=== PATIENT | female | born 1960 | race American Indian/Alaskan Native ===

== ENCOUNTER 2019-06-16 12:00 | Observation (INO) | payer BC ==
--- NOTE | 2019-09-04 14:36 | Anesthesia Consultation ---
Anesthesia Consult and Med Hx Date of service: 09/08/19 - Airway Anesthetic Teeth Evaluation: Good, Crowns ROM Head & Neck: Adequate Mental/Hyoid Distance: Adequate Mallampati Class: Class II Intubation Access Assessment: Good - Pre-Operative Health Status ASA Pre-Surgery Classification: ASA2 Proposed Anesthetic Plan: General Nerve Block: TAP - Cardiovascular System Hx Hypertension: Yes (since 2017. Pt states she can climb two flights of stairs) - Central Nervous System Hx Psychiatric Problems: Yes (Anxiety) - Other Systems Hx Cancer: No
[2019-09-04 15:05] LABS: Hematocrit 44.8 % (30.3-42.9); Hemoglobin 14.8 gm/dl (10.1-14.3); Mean Corpuscular HGB Conc 33 % (30-34); Mean Corpuscular Volume 91 fl (79-97); Platelet Count 256 K/mm3 (140-440); Red Cell Distribution Width 13.5 % (13.2-15.2)
[2019-09-04 18:57] LABS: Basophils % (Manual) 0 % (0.0-1.8); Total Cells Counted 100
[2019-09-04 18:58] LABS: Platelet Estimate Consistent w Auto; RBC Morphology Normal
--- NOTE | 2019-09-08 11:04 | Anesthesia Day of Surgery ---
Anesthesia Day of Surgery - Day of Surgery Patient Examined: Yes Patient H&P Reviewed: Yes Patient is NPO: Yes
[2019-09-08] MEDS ORDERED: BUPIVACAINE-EPINEPHRINE/PF 0.5%-1:200,000 (30 ML) VIAL INFILTRATI ONE (11:07)
[2019-09-08] MEDS ORDERED: LIDOCAINE (1%) 10 MG/1 ML VIAL 20 ML MDV ONE (11:07)
[2019-09-08] MEDS ORDERED: fentaNYL 100 MCG/2 ML INJ IV ONE (11:14)
[2019-09-08] MEDS ORDERED: CELECOXIB 200 MG CAP ONE (11:31)
[2019-09-08] MEDS ORDERED: GABAPENTIN 300 MG CAP ONE (11:31)
--- NOTE | 2019-09-08 11:52 | History and Physical Report ---
History of Present Illness Date of examination: 09/08/19 Date of admission: 09/08/19 10:48 Chief complaint: Symptomatic uterine fibroids History of present illness: Pt is a 59yo BF LMP 7 years ago presents for surgical evaluation and treatment of uterine fibroids. She complained of pelvic pain, and pelvic u/s showed an enlarged uterus 14 x 10 x 8cm with 5 large fibroids (largest 6 x 5cm). She is now scheduled for a Robotic Assisted Total Hysterectomy with Bilateral SalpingoOophorectomy. Past History Past Medical History: hypertension Past Surgical History: breast surgery, section (x2), myomectomy, other (BTL; Detached retina repair; Tympanoplasty) LAUNDRY CLERK History: fibroids Social history: no significant social history, single Medications and Allergies Allergies Allergy/AdvReac Type Severity Reaction Status Date / Time adhesive tape AdvReac Rash Verified 09/08/19 11:10 tape AdvReac Skin Uncoded 09/08/19 11:09 irritation Home Medications Medication Instructions Recorded Confirmed Last Taken Type Metoprolol [Lopressor TAB] 50 mg PO DAILY 08/31/19 09/08/19 09/08/19 07:00 History PARoxetine [Paxil] 10 mg PO DAILY 08/31/19 09/08/19 09/07/19 09:00 History Active Meds: Active Medications Celecoxib (Celebrex) 200 mg PO PREOP NR Stop: 09/08/19 23:59 Gabapentin (Gabapentin) 300 mg PO PREOP NR Stop: 09/08/19 23:59 Lactated Ringer's (Lactated Ringers) 1,000 mls @ 75 mls/hr IV DIRECT JESSICA Midazolam HCl (Versed) 2 mg IV PREOP NR Stop: 09/08/19 23:59 Review of Systems All systems: negative - Vital Signs Vital signs: Vital Signs Temp Pulse Resp BP Pulse Ox 97.3 F L 66 18 149/67 99 09/04/19 14:00 09/04/19 14:00 09/04/19 14:00 09/04/19 14:00 09/04/19 14:00 Temp Pulse Resp BP Pulse Ox 98.1 F 6 L 6 L 133/78 97 09/08/19 11:00 09/08/19 11:00 09/08/19 11:00 09/08/19 11:00 09/08/19 11:00 - Physical Exam Breasts: Positive: deferred Cardiovascular: Regular rate Lungs: Positive: Clear to auscultation Abdomen: Positive: normal appearance Genitourinary (Female): Positive: normal external genitalia Vagina: Positive: normal moisture Uterus: Positive: enlarged Extremities: Positive: normal Results Result Diagrams: 09/04/19 14:10 All other labs normal. Ultrasound: report reviewed Assessment and Plan - Patient Problems (1) Uterine fibroid Onset Date: 09/08/19 Current Visit: Yes Status: Acute Qualifiers: Uterine leiomyoma location: intramural, submucous, and subserous Qualified Code(s): D25.1 - Intramural leiomyoma of uterus; D25.0 - Submucous leiomyoma of uterus; D25.2 - Subserosal leiomyoma of uterus Plan to address problem: A: Symptomatic uterine fibroids P: Admit for a Robotic Assisted Total Hysterectomy with Bilateral SalpingoOophorectomy
[2019-09-08] MEDS ORDERED: LACTATED RINGERS 1,000 ML IV SCH (12:00)
[2019-09-08] MEDS ORDERED: MIDAZOLAM 2 MG/2 ML INJ IV NR (12:00)
[2019-09-08] MEDS ORDERED: CELECOXIB 200 MG CAP PO NR (12:00)
[2019-09-08] MEDS ORDERED: ceFAZolin/Water 2 GM/20 ML 2 GM/20 ML SYRINGE IV NR (12:00)
[2019-09-08] MEDS ORDERED: GABAPENTIN 300 MG CAP PO NR (12:00)
[2019-09-08] MEDS ORDERED: HYDROmorphone 1 MG/1 ML INJ ONE (13:33)
[2019-09-08] MEDS ORDERED: PROPOFOL 200 MG/20 ML VIAL IV ONE (13:33)
[2019-09-08] MEDS ORDERED: LIDOCAINE MPF (2%) 20 MG/1 ML VIAL 5 ML ONE (13:33)
[2019-09-08] MEDS ORDERED: ROCURONIUM 50 MG/5 ML INJ IV ONE (13:34)
[2019-09-08] MEDS ORDERED: NEOMY 40 MG/POLYMYXIN B 200,000 UNITS/ML (GU) AMPULE IR ONE ×2 (13:35→14:47)
[2019-09-08] MEDS ORDERED: SODIUM CHLORIDE 0.9% IRR 1,500 ML BOTTLE IR ONE (14:47)
[2019-09-08] MEDS ORDERED: SODIUM CHLORIDE 0.9% IRRIG SOLN 2000 ML IR ONE (14:47)
--- NOTE | 2019-09-08 15:44 | Procedure Note ---
Date of procedure: 09/08/19 Pre-op diagnosis: Intraabdominal adhesions Post-op diagnosis: same Procedure: Robotic lysis of adhesions Findings: Intraoperative consult for lysis of adhesions. Patient already under anesthesia with robot docked. Dr. Melara noted dense adhesions from the colon to the uterus. Fenestrated bipolar in arm 2 and monopolar scissors in arm 1. The colon was very meticulously dissected from the uterus using a combination of blunt dissection and sharp dissection with the scissors. A small amount of uterine serosa was left attached to the colon to facilitate lysis of adhesions and prevent denuding the colonic serosa. Once all adhesions were dissected, the colon was examined and was intact. No injury was seen. There was hemostasis. Dr. Melara resumed his portion of the procedure at this time. The patient remained stable throughout. Anesthesia: GETA Surgeon: EMERITA LEVI Estimated blood loss: minimal Pathology: none Condition: stable Disposition: no change (Dr. Melara proceeded with his portion of the case)
[2019-09-08] MEDS ORDERED: PHENYLEPHRINE/NS 1,000 MCG/10 ML SYRINGE (OR USE) IV ONE (15:46)
[2019-09-08] MEDS ORDERED: LACTATED RINGERS 1,000 ML ONE ×2 (15:46→16:49)
[2019-09-08] MEDS ORDERED: GLYCOPYRROLATE 0.4 MG/2 ML INJ ONE (15:56)
[2019-09-08] MEDS ORDERED: NEOSTIGMINE 10MG/10 ML INJ MDV ONE (15:56)
--- NOTE | 2019-09-08 15:57 | Operative Report ---
Operative Report Operative Report: Pre-operative diagnosis: Symptomatic uterine fibroids Post-operative diagnosis: Same with extensive bowel/uterine adhesions Procedure : 1. Robotic-assisted total hysterectomy 2. Bilateral salpingoOophorectomy 3. Lysis of extensive bowel/uterine adhesions Surgeon: Beto Melara MD Intra-operative consultation : Dr Daivs (General Surgeon) Operations Leader: Holly Allison CSA Anesthesia: VENANCIO Block followed by general endotracheal intubation EBL: 100 mL's Findings: A 12-14 weeks size multimyomatous uterus with bowel densely adherent to the posterior uterine wall, and lower uterine segment adhesions. Fallopian tubes showing evidence of previous tubal ligation bilaterally and atrophic ovaries bilaterally. Procedure: After the patient's first correctly identified, she was prepped and draped in the usual sterile fashion and placed in the dorsolithotomy position. The bladder was first catheterized using a Johansen catheter and the speculum was placed in the vagina. The anterior lip of the cervix was grasped using a single- tooth tenaculum, and the medium Vesicare cup was placed. The tenaculum and speculum was then removed from the vagina and attention was then turned to the abdomen. The skin knife was used to make a small incision approximately 5 cm above the umbilicus through which a 12 mm trocar was placed under direct visualization. After adequate amount of abdominal insufflation, visualization of the pelvic organs found the uterus to be enlarged and bowel densely adherent to the posterior uterine wall, and the fallopian tubes showed evidence of previous tubal ligation bilaterally and ovaries were atrophic bilaterally. A right and left paramedian incision was made through which the 8 mm trochars were placed under direct visualization and a 5 mm trocar was placed in the right lower quadrant. The patient was then placed in steep Trendelenburg positioning and the robot was docked on the patient's left side. After all the robotic ports were connected and adequate functioning of the robotic arms were tested the surgeon then proceeded to the console to begin the hysterectomy. First the filmy adhesions were taken down using sharp and blunt dissections, but an intraoperative consultation was made to Dr Davis for removal of the dense adhesions from the bowel to the posterior uterine wall. After normal anatomy was restored, I continued the operation. The left infundibulopelvic ligament was grasped, cauterized and cut, the left fallopian tube also grasped, cauter ized and cut along the mesosalpinx, thus freeing the left ovary from the left pelvic sidewall. The same procedure was performed on the right. The right infundibulopelvic ligament was grasped, cauterized and cut, the right fallopian tube also grasped, cauterized and cut along the mesosalpinx, thus freeing the right ovary from the right pelvic sidewall. The bladder flap was taken down anteriorly and the uterine vessels were grasped, cauterized and cut bilaterally. The cardinal ligaments were sequentially grasped, cauterized and cut down to the level of the uterosacral ligaments. At this time an anterior colpotomy was performed over the Vcare cup, and the cervix was circumscribed beginning anteriorly and meeting posteriorly until the cervix was freed. The cervix, uterus, fallopian tubes and ovaries were then removed through the vagina and sent to pathology. The vaginal cuff was then closed using 2-0 Vloc suture in a running fashion. Irrigation was then performed and after good hemostasis was achieved. The procedure was considered complete. The Tisseel sealant was then sprayed across the vaginal cuff site, and after excellent hemostasis was assured, Interceed was placed across the vaginal cuff site. The abdominal pressure was reduced to 8 mmHg and excellent hemostasis was assured. All instruments were then removed from the abdominal cavity. Each incision was closed using 0 Vicryl suture in a [id number] configuration on the fascia followed by 4-0 Monocryl suture in a sub-cuticular fashion on the skin. Each incision was also infiltrated using 0.5% Marcaine solution. The vaginal pack was removed. The patient tolerated the procedure well and was transported to the recovery room in stable condition.
[2019-09-08] MEDS ORDERED: oxyCODONE /ACETAMINOPHEN 5-325MG TAB PO PRN (15:58)
[2019-09-08] MEDS ORDERED: MAGNESIUM HYDROXIDE (MOM) ORAL LIQD UDC PO PRN (15:58)
[2019-09-08] MEDS ORDERED: ACETAMINOPHEN 325 MG TAB PO PRN (15:58)
[2019-09-08] MEDS ORDERED: NALOXONE 0.4 MG/1 ML INJ IV PRN (15:58)
[2019-09-08] MEDS ORDERED: ONDANSETRON 4 MG/2 ML INJ IV PRN (15:58)
[2019-09-08] MEDS ORDERED: HYDROcodone/ACETAMINOPHEN 5-325 MG TAB PO PRN (15:58)
[2019-09-08] MEDS ORDERED: KETOROLAC 30 MG/1 ML INJ ONE (15:59)
[2019-09-08] MEDS ORDERED: ONDANSETRON 4 MG/2 ML INJ ONE (15:59)
[2019-09-08] MEDS ORDERED: D5W/LACTATED RINGERS 1,000 ML IV SCH (17:00)
--- NOTE | 2019-09-08 18:19 | Post Anesthesia Evaluation ---
- Post Anesthesia Evaluation Patient Participated: Yes Airway Patent: Yes Stable Respiratory Function: Yes Nausea/Vomiting: No Temp > 96.8F: Yes Pain Manageable: Yes Adequeate Hydration: Yes Anesthesia Complications: No Block Receding Appropriately: Not Applicable Patient on Ventilator: No
[2019-09-08] MEDS ORDERED: DOCUSATE SODIUM 100 MG CAP PO SCH (22:00)
[2019-09-08] MEDS: ceFAZolin/NS 1 GM/50 ML 1 GM/50 ML BAG IV SCH (22:03)
[2019-09-08] MEDS: KETOROLAC 30 MG/1 ML INJ IV SCH (22:06)
[2019-09-09] MEDS: guaiFENesin DM 200/20 MG ORAL LIQD 10 ML PO PRN ×2 (00:15→06:05)
[2019-09-09] MEDS: KETOROLAC 30 MG/1 ML INJ IV SCH ×2 (04:02→10:03)
[2019-09-09 05:00] LABS: Hematocrit 37.5 % (30.3-42.9); Hemoglobin 12.8 gm/dl (10.1-14.3)
[2019-09-09] MEDS: ceFAZolin/NS 1 GM/50 ML 1 GM/50 ML BAG IV SCH (05:59)
--- NOTE | 2019-09-09 09:43 | Progress Note ---
Assessment and Plan - Patient Problems (1) Uterine fibroid Onset Date: 09/08/19 Current Visit: Yes Status: Resolved Qualifiers: Uterine leiomyoma location: intramural, submucous, and subserous Qualified Code(s): D25.1 - Intramural leiomyoma of uterus; D25.0 - Submucous leiomyoma of uterus; D25.2 - Subserosal leiomyoma of uterus (2) Status post robot-assisted surgical procedure Onset Date: 09/09/19 Current Visit: Yes Status: Resolved Plan to address problem: A: S/P RATH with BSO - POD #1 Doing well P: May go home today. Subjective - Subjective Date of service: 09/09/19 Principal diagnosis: s/p RATH - POD #1 Interval history: Pt is feeling well s/p a Robotic Assisted Total Hysterectomy with Bilateral SalpingoOophorectomy. She is tolerating a soft diet without nausea or vomiting, ambulating and voiding without difficulty. Patient reports: appetite normal, voiding normally, pain well controlled, flatus, ambulating normally, no dizzy ambulation, no nauseated Objective - Vital Signs Latest vital signs: Vital Signs Temp Pulse Resp BP BP Pulse Ox 09/09/19 09:24 98.9 F 99 H 20 93/47 90 09/09/19 05:34 98.5 F 99 H 20 103/54 81 L 09/08/19 23:31 98.5 F 108 H 20 103/61 100 09/08/19 19:51 98.5 F 90 20 106/56 92 09/08/19 19:00 97.5 F L 100 09/08/19 18:06 86 131/62 100 09/08/19 17:45 97.2 F L 76 17 148/60 97 09/08/19 17:30 72 14 143/58 97 09/08/19 17:15 72 14 141/59 97 09/08/19 17:00 69 14 148/55 97 09/08/19 16:45 70 14 130/58 97 09/08/19 16:30 78 14 159/78 86 09/08/19 16:25 77 14 135/65 96 09/08/19 16:20 96.9 F L 63 12 119/78 86 09/08/19 13:04 84 14 136/57 100 09/08/19 12:59 83 14 139/56 100 09/08/19 12:49 79 12 145/62 100 09/08/19 12:44 72 13 128/61 100 09/08/19 12:39 58 L 11 L 123/48 100 09/08/19 12:34 60 13 134/57 100 09/08/19 12:32 18 09/08/19 12:29 61 15 127/81 100 09/08/19 12:20 18 09/08/19 11:00 98.1 F 6 L 6 L 133/78 97 09/08/19 10:30 98.1 F 62 16 133/78 97 Intake and Output 09/08/19 09/09/19 09/09/19 22:59 06:59 14:59 Intake Total 650 120 Output Total 1360 800 Balance -710 -680 Intake: IV 650 ANCEF/NS 1 GM/50 ML 1 gm 50 In 50 ml @ 100 mls/hr IV Q8H [facility] Rx#:[id number] Oral 120 Output: Urine 1360 800 Indwelling Catheter 600 800 Uretheral (Johansen) 350 Other: Total, Intake Amount 120 Total, Output Amount 600 200 Voiding Method Indwelling Catheter - Exam Breasts: Present: deferred Cardiovascular: Present: Regular rate Abdomen: Present: normal appearance, soft Extremities: Present: normal Incision: Present: normal, dry, intact - Labs Labs: Laboratory Tests 09/04/19 09/08/19 09/09/19 14:10 10:50 04:39 WBC 5.0 RBC 4.90 Hgb 14.8 H 12.8 Hct 44.8 H 37.5 MCV 91 MCH 30 MCHC 33 RDW 13.5 Plt Count 256 Lymph % (Auto) Chef Instructor Add Manual Diff Complete Total Counted 100 Seg Neuts % (Manual) 36.0 L Band Neutrophils % 0 Lymphocytes % (Manual) 59.0 H Reactive Lymphs % (Man) 0 Monocytes % (Manual) 4.0 Eosinophils % (Manual) 1.0 Basophils % (Manual) 0 Metamyelocytes % 0 Myelocytes % 0 Promyelocytes % 0 Blast Cells % 0 Nucleated RBC % Not Reportable Seg Neutrophils # Man 1.8 Band Neutrophils # 0.0 Lymphocytes # (Manual) 3.0 Abs React Lymphs (Man) 0.0 Monocytes # (Manual) 0.2 Eosinophils # (Manual) 0.1 Basophils # (Manual) 0.0 Metamyelocytes # 0.0 Myelocytes # 0.0 Promyelocytes # 0.0 Blast Cells # 0.0 WBC Morphology Not Reportable Hypersegmented Neuts Not Reportable Hyposegmented Neuts Not Reportable Hypogranular Neuts Not Reportable Smudge Cells Not Reportable Toxic Granulation Not Reportable Toxic Vacuolation Not Reportable Dohle Bodies Not Reportable Pelger-Huet Anomaly Not Reportable Rosenda Rods Not Reportable Platelet Estimate Consistent w auto Clumped Platelets Not Reportable Plt Clumps, EDTA Not Reportable Large Platelets Not Reportable Giant Platelets Not Reportable Platelet Satelliting Not Reportable Plt Morphology Comment Not Reportable RBC Morphology Normal Dimorphic RBCs Not Reportable Polychromasia Not Reportable Hypochromasia Not Reportable Poikilocytosis Not Reportable Anisocytosis Not Reportable Microcytosis Not Reportable Macrocytosis Not Reportable Spherocytes Not Reportable Pappenheimer Bodies Not Reportable Sickle Cells Not Reportable Target Cells Not Reportable Tear Drop Cells Not Reportable Ovalocytes Not Reportable Helmet Cells Not Reportable Pop-[place] Bodies Not Reportable [place] Rings Not Reportable Ofe Cells Not Reportable Bite Cells Not Reportable Crenated Cell Not Reportable Elliptocytes Not Reportable Acanthocytes (Spur) Not Reportable Rouleaux Not Reportable Hemoglobin C Crystals Not Reportable Schistocytes Not Reportable Malaria parasites Not Reportable Henri Bodies Not Reportable Hem Pathologist Commnt No Blood Type O POSITIVE Antibody Screen Negative
--- NOTE | 2019-09-09 09:55 | Discharge Summary ---
Providers - Providers Date of Admission: 09/08/19 10:48 Date of discharge: 09/09/19 Attending physician: ANGUS ABERNATHY Primary care physician: JOYA DEMPSEY Hospitalization Reason for admission: other (Symptomatic uterine fibroids) Procedure: other (Robotic Assisted Total Hysterectomy with BSO) Episiotomy: none Laceration: none Incision: normal, dry, intact Other procedures: none complications: none Discharge diagnosis: other (s/p RATH with BSO) Hospital course: Pt is a 59yo BF LMP 7 years ago who presented for surgical evaluation and treatment of uterine fibroids. She complained of pelvic pain, and pelvic u/s showed an enlarged uterus 14 x 10 x 8cm with 5 large fibroids (largest 6 x 5cm). She underwent an uncomplicated Robotic Assisted Total Hysterectomy with Bilateral SalpingoOophorectomy, and by POD #1 she was tolerating a reg diet without nausea or vomiting, ambulating and voiding without difficulty. She was therefore discharged to home on POD #1 in stable condition. Condition at discharge: Good Disposition: DC-01 TO HOME OR SELFCARE - Discharge Diagnoses (1) Uterine fibroid Status: Resolved Qualifiers: Uterine leiomyoma location: intramural, submucous, and subserous Qualified Code(s): D25.1 - Intramural leiomyoma of uterus; D25.0 - Submucous leiomyoma of uterus; D25.2 - Subserosal leiomyoma of uterus (2) Status post robot-assisted surgical procedure Status: Resolved Plan - Discharge Medications Prescriptions: Ibuprofen [Motrin] 800 mg PO Q8HR PRN #30 tablet PRN Reason: Pain, Mild (1-3) HYDROcodone/APAP 5-325 [[place] 5-325 mg TAB] 1 each PO Q6HR PRN #30 tablet PRN Reason: Pain, Moderate (4-6) - Provider Discharge Summary Activity: routine, no sex for 6 weeks, no heavy lifting 4 weeks, no strenuous exercise Diet: routine Instructions: routine Additional instructions: [] Smoking cessation referral if applicable(refer to patient education folder for contact #) [] Refer to [facility] Booklet Call your doctor immediately for: * Fever > 100.5 * Heavy vaginal bleeding ( >1 pad per hour) * Severe persistent headache * Shortness of breath * Reddened, hot, painful area to leg or breast * Drainage or odor from incision. * Keep incision clean and dry at all times and follow doctor's instructions regarding bathing/showering - Follow up plan Follow up: JOYA DEMPSEY MD [Primary Care Provider] - 14 Days ANGUS ABERNATHY MD [Staff Physician] - 14 Days
[2019-09-09 12:23] VITALS: BP 112/57
== END 2019-09-09 12:55 | disposition home or self-care (01) ==
LOC: OR 09-08 10:24 → INTOOBSV 09-08 10:48 → 3A 09-08 10:48 → EDSTATUS 09-08 12:00 → OB 09-08 16:09
PROVIDERS: ADMIT Obstetrics & Gynecology; ATTEND Obstetrics & Gynecology
DX: D25.9 Leiomyoma of uterus, unspecified (principal); I10 Essential (primary) hypertension; Z98.891 History of uterine scar from previous surgery; Z90.710 Acquired absence of both cervix and uterus; Z98.890 Other specified postprocedural states
CPT/HCPCS: 36415; 58571; 64450; 85007; 85014; 85018; 85025; 86850; 86900; 86901; 88307; 96365; 96366; 96375; 96376; A4217; C1765; C9250; G0378; G0379; J0690; J1170; J1885; J2250; J2310; J2370; J2405; J2704; J2710; J3010; J7120; J7121; S2900

== ENCOUNTER 2019-11-02 07:54 | Outpatient (CLI) | payer BC ==
--- NOTE | 2019-11-02 14:26 | Mammography Report ---
DIGITAL SCREENING MAMMOGRAM WITH CAD, 11/02/2019 INDICATION: Routine screening mammography. TECHNIQUE: Digital bilateral 2D mammography was obtained in the craniocaudal and mediolateral obliq ue projections. This examination was interpreted with the benefit of Computer-Aided Detection analysi s. COMPARISON: None available. She does not recall where she previously had a mammogram. FINDINGS: Breast Density: The breasts are heterogeneously dense, which may obscure small masses. There is no evidence of dominant mass, suspicious calcifications or architectural distortion in eithe r breast. IMPRESSION: No mammographic evidence of malignancy. Follow up recommendation: Routine yearly BI-RADS Category 1: Negative. A "normal" or negative report should not discourage follow up or biopsy of a clinically significant f inding. A written summary of these findings will be mailed to the patient. The patient will be entered into a mammography reporting system which will generate a reminder letter for the patient's next appointmen t at the appropriate interval. The [employer] recommends yearly mammograms starting at age 40 and continuing as l gerri as a woman is in good health. Breast MRI is recommended for women with an approximate 20-25% or greater lifetime risk of breast cancer, including women with a strong family history of breast or ova carly cancer or who have been treated for Hodgkin's disease. Signer Name: Julio Pritchett MD Signed: 11/02/2019 2:22 PM Workstation Name: [id number]
== END 2019-11-02 07:55 | disposition home or self-care (01) ==
LOC: MAMMO 07:54
PROVIDERS: ATTEND Family Medicine
DX: Z12.31 Encounter for screening mammogram for malignant neoplasm of breast (principal)
CPT/HCPCS: 77067